=== PATIENT | female | born 1975 | race Two or more races ===

== ENCOUNTER 2022-09-09 10:06 | Emergency (ER) | payer MEDICAID, OTHER ==
[~2022-09-09] VITALS: Ht 170.2 cm; Wt 83.7 kg
[2022-09-09 10:16] VITALS: BP 135/81
[2022-09-09] MEDS ORDERED: CLIN300C70 PO (11:07)
[2022-09-09] MEDS ORDERED: IBUP-1456 PO (11:07)
[2022-09-09] MEDS ORDERED: cefTRIAXone SOD 1,000 MG VL IM ONE (11:15)
== END 2022-09-09 11:39 | disposition home or self-care (01) ==
LOC: ER 10:06
DX: K04.7 Periapical abscess without sinus (principal)
CPT/HCPCS: 96372; 99283; J0696